=== PATIENT | male | born 1945 | race Caucasian/White ===

== ENCOUNTER → 2018-01-28 | Outpatient (CLI) | payer OTHER ==
[~2018-01-28] MED LIST: ASPIRIN81 M2 PO; PRAVACHOL20 MG PO
== END | disposition home or self-care (01) ==
LOC: RAD 12:40
DX: I25.10 Atherosclerotic heart disease of native coronary artery without angina pectoris (principal); I71.2 Thoracic aortic aneurysm, without rupture; J98.4 Other disorders of lung; E78.5 Hyperlipidemia, unspecified; R53.83 Other fatigue
CPT/HCPCS: 75574

== ENCOUNTER 2018-02-05 11:34 | Day surgery (SDC) | payer OTHER | END 2018-02-05 18:50 | disposition home or self-care (01) | LOC: CATH 11:34 | DX: I25.10 Atherosclerotic heart disease of native coronary artery without angina pectoris (principal); E78.5 Hyperlipidemia, unspecified; I71.2 Thoracic aortic aneurysm, without rupture; I48.1 Persistent atrial fibrillation; D86.9 Sarcoidosis, unspecified; Z86.73 Personal history of transient ischemic attack (TIA), and cerebral infarction without residual deficits; Z79.82 Long term (current) use of aspirin | CPT/HCPCS: C1769; C1887; J1644; J2250; J3010; J7040 ==